=== PATIENT | male | born 1995 | race Caucasian/White ===

== ENCOUNTER → 2018-02-16 | Outpatient (CLI) | payer OTHER ==
[~2018-02-16] MED LIST: ACTL1605 PO; AMX500 PO
== END | disposition home or self-care (01) ==
LOC: C.LABSPEC 17:07
PROVIDERS: ATTEND Physician Assistant
DX: L70.0 Acne vulgaris (principal)

== ENCOUNTER → 2018-03-10 | Outpatient (CLI) | payer OTHER ==
--- NOTE | 2018-03-10 09:08 | DIAGNOSTIC IMAGING REPORT ---
DOUBLE CONTRAST UPPER GI SERIES CLINICAL HISTORY: Gastroesophageal reflux disease. COMPARISON STUDY: No priors. TECHNIQUE: A standard air contrast upper GI series was performed. Spot images of the esophagus and stomach were obtained in multiple obliquities both upright and prone. FINDINGS: The patient swallowed barium without difficulty. The esophagus is structurally normal without evidence of intrinsic or extrinsic mass. The esophageal mucosal pattern is normal. No gastroesophageal reflux was elicited by having the patient perform the Valsalva maneuver. The gastroesophageal junction distends normally. The stomach is normal in configuration and demonstrates normal distensibility. No mass or ulceration is identified. Mild gastric fold thickening suggests gastritis. The duodenal bulb and sweep are unremarkable. Fluoroscopy time: 2.3 minutes. Fluoroscopic images: 24 IMPRESSION: 1. Mild gastric fold thickening suggests gastritis. Clinical correlation will be required. 2. No gastroesophageal reflux was identified during the examination. Electronically signed by: Raimundo Hunt M.D. 03/10/2018 9:06 AM Dictated Date/Time: 03/10/2018 9:05 AM
== END | disposition home or self-care (01) ==
LOC: C.RAD 08:09
PROVIDERS: ATTEND Physician Assistant Medical
DX: K21.9 Gastro-esophageal reflux disease without esophagitis (principal)

== ENCOUNTER → 2018-03-11 | Outpatient (CLI) | payer OTHER | END | disposition home or self-care (01) | LOC: C.PATHSPEC 17:54 | PROVIDERS: ATTEND Plastic Surgery | DX: D22.5 Melanocytic nevi of trunk (principal); L91.0 Hypertrophic scar; L81.4 Other melanin hyperpigmentation ==

== ENCOUNTER → 2018-04-07 | Outpatient (CLI) | payer OTHER | END | disposition home or self-care (01) | LOC: C.LABBC 13:55 | PROVIDERS: ATTEND Family Medicine Adult Medicine | DX: R09.82 Postnasal drip (principal); R53.83 Other fatigue ==